=== PATIENT | female | born 1930 | race Caucasian/White ===

== ENCOUNTER 2017-03-16 05:58 | Inpatient (IN) | payer MEDICARE ==
[2017-03-16] MEDS ORDERED: MORPHINE SULFATE 4 MG/ML SYRINGE IV STA (06:24)
--- NOTE | 2017-03-16 06:53 | XR ---
EXAM: XR Pelvis, 1 View CLINICAL HISTORY: Reason: Pain TECHNIQUE: Frontal view of the pelvis. COMPARISON: No relevant prior studies available. FINDINGS: Bones/joints: Bone island versus ossicle projected over the left femoral neck. Degenerative changes of the lumbar spine. No acute fracture. No dislocation. Soft tissues: Unremarkable. IMPRESSION: No acute findings.
--- NOTE | 2017-03-16 06:55 | XR ---
EXAM: XR Chest, 2 Views CLINICAL HISTORY: Reason: trauma TECHNIQUE: Frontal and lateral views of the chest. COMPARISON: No relevant prior studies available. FINDINGS: Lungs: Unremarkable. No consolidation. Pleural space: Unremarkable. No pneumothorax. Heart: Unremarkable. No cardiomegaly. Mediastinum: Atherosclerosis of the aorta. Otherwise unremarkable. Bones/joints: Degenerative changes of the spine and shoulders. IMPRESSION: No acute findings.
[2017-03-16 07:01] LABS: Appearance,Urine Clear (Clear); Bilirubin,Urine Negative (Negative); Glucose,Urine (UA) Negative (Negative); Ketones,Urine Negative (Negative); Leukocyte Esterase,Urine Negative (Negative); Nitrite,Urine Negative (Negative); PH, Urine 7.5 (5.0-8.0); Protein,Urine Negative (Negative); Specific Gravity,Urine 1.006 (1.001-1.035); UA Billing (MACRO vs. MICRO) CHEM; Urobilinogen,Urine <2.0 mg/dL (<2.0)
[2017-03-16 07:06] LABS: Basophils % (A) 1 %; CH 30.9; Eosinophils # (A) 0.3 k/uL (0-0.7); Eosinophils % (A) 5 %; HCT 37.8 % (34.0-46.0); HDW 2.74; HGB 12.8 gm/dL (11.4-16.0); Luc # (Auto) 0.09; Luc % (Auto) 2; Lymphocytes # (A) 1.1 k/uL (1.0-4.8); Lymphocytes % (A) 21 %; MCHC 33.9 g/dL (31.0-37.0); MCV 91.4 fL (80.0-100.0); Monocytes # (A) 0.3 k/uL (0-1.0); Monocytes % (A) 6 %; Neutrophils # (A) 3.5 k/uL (1.3-7.7); Neutrophils % (A) 66 %; RBC 4.13 m/uL (3.80-5.40); RDW 12.6 % (11.5-15.5); WBC 5.3 k/uL (3.8-10.6); WBC (Perox) 5.13
[2017-03-16 07:08] LABS: ALT 26 U/L (9-52); AST 28 U/L (14-36); Alcohol <10 mg/dL; Alkaline Phosphatase 48 U/L (38-126); Amylase 39 U/L (30-110); Anion Gap 5 mmol/L; Blood Urea Nitrogen 11 mg/dL (7-17); Calcium 8.7 mg/dL (8.4-10.2); Carbon Dioxide 26 mmol/L (22-30); Chloride 108 mmol/L (98-107); Glucose 96 mg/dL (74-99); Non-African American GFR(MDRD) >60 (>60 ml/min/1.73 sqM); Potassium 4.4 mmol/L (3.5-5.1); Sodium 139 mmol/L (137-145); Total Bilirubin 0.8 mg/dL (0.2-1.3); Total Protein 5.9 g/dL (6.3-8.2)
[2017-03-16 07:14] LABS: Manual Review Performed
[2017-03-16 07:18] LABS: INR 1.2 (<1.1); Prothrombin Time 11.7 sec (9.0-12.0)
[2017-03-16 07:20] LABS: Creatine Kinase 99 U/L (30-135)
[2017-03-16 07:32] LABS: Creatine Kinase MB 1.4 ng/mL (0.0-2.4); Troponin I <0.012 ng/mL (0.000-0.034)
--- NOTE | 2017-03-16 07:37 | CT ---
EXAMINATION TYPE: CT brain ludin martinez DATE OF EXAM: 03/16/2017 7:22 AM COMPARISON: NONE HISTORY: fall CT DLP: 2769.97 mGycm Automated exposure control for dose reduction was used. TECHNIQUE: CT scan of the head and cervical spine are performed without contrast. FINDINGS: There is no acute intracranial hemorrhage, mass effect, or midline shift identified. The ventricles and sulci are within normal limits in size. White matter demyelination is likely due to chronic small vessel ischemia. Cortical atrophy is likely age-related. Cerebral vascular calcificatio ns are present. The globes are intact and the visualized sinuses are clear. Cervical spine is visualized in its entirety from C1 through upper thoracic levels and demonstrates no evidence of acute fracture or dislocation. Minimal retrolisthesis grade 1 C4-5, C5-6 and C6-7. En dplate sclerosis is present, there is multilevel facet arthropathy. Multilevel foraminal encroachment present to include C3-4 on the left, C4-5 left than right and bilateral C5-6, right-sided C6-7. Prev ertebral soft tissue appears within normal limits. There is multilevel spondylosis. Loss of disc hei ght present C3-4, C4-5 and C5-6, C6-7. The C1-C2 articulation is unremarkable. IMPRESSION: 1. There is no acute fracture or dislocation evident in the cervical spine. 2. No acute intracranial hemorrhage, mass effect, or midline shift is seen.
--- NOTE | 2017-03-16 07:40 | CT ---
EXAMINATION TYPE: CT facial bones wo con DATE OF EXAM: 03/16/2017 7:22 AM COMPARISON: NONE HISTORY: fall CT DLP: 578.03 mGycm Automated exposure control for dose reduction was used. TECHNIQUE: CT scan of the sinuses is performed without contrast, axial images are obtained, coronal r eformatted images are also reviewed. FINDINGS: The paranasal sinuses including the frontal, ethmoid, sphenoid, and maxillary sinuses bila terally are well-aerated without abnormal opacification. The ostiomeatal complex is patent bilateral ly on the coronal images. Visualized portion of mastoid air cells show no abnormal opacification. The globes are intact bilate rally. IMPRESSION: The sinuses are clear and the ostiomeatal complex is patent bilaterally.
--- NOTE | 2017-03-16 08:11 | ED ---
General Adult HPI - General Chief complaint: Fall Stated complaint: fall Source: patient, EMS, RN notes reviewed, old records reviewed Mode of arrival: EMS Limitations: no limitations - History of Present Illness Initial comments: This is an 86-year-old female ER for evaluation. Patient presents here for evaluation status post fall. Supple fall. Mechanical fall. Recent has history of falls, patient is on Plavix. Patient is complaining of right arm pain, left arm pain and facial pain. No loss of consciousness. No nausea vomiting. No significant headache at this time. No neck pain. Patient denies drugs or alcohol - Related Data Home Medications Medication Instructions Recorded Confirmed Carvedilol 25 mg PO BID 03/16/17 03/16/17 Clopidogrel [Plavix] 75 mg PO DAILY 03/16/17 03/16/17 Gabapentin [Neurontin] 100 mg PO DAILY 03/16/17 03/16/17 Nitroglycerin Sl Tabs [Nitrostat] 0.4 mg SUBLINGUAL Q5M PRN 03/16/17 03/16/17 Simvastatin [Zocor] 40 mg PO HS 03/16/17 03/16/17 traMADol HCL [Ultram] 50 mg PO Q6HR PRN 03/16/17 03/16/17 Allergies Allergy/AdvReac Type Severity Reaction Status Date / Time No Known Allergies Allergy Verified 03/16/17 08:00 Review of Systems ROS Statement: Those systems with pertinent positive or pertinent negative responses have been documented in the HPI. ROS Other: All systems not noted in ROS Statement are negative. Past Medical History Past Medical History: Hyperlipidemia, Hypertension History of Any Multi-Drug Resistant Organisms: None Reported Past Surgical History: Unable to Obtain Past Psychological History: No Psychological Hx Reported Smoking Status: Former smoker Past Alcohol Use History: None Reported Past Drug Use History: None Reported General Exam Limitations: no limitations General appearance: alert, in no apparent distress Head exam: Absent: atraumatic (, significant facial abrasions, swollen lip edematous cheek,) Eye exam: Present: normal appearance, PERRL, EOMI. Absent: scleral icterus, conjunctival injection, periorbital swelling ENT exam: Present: normal exam, mucous membranes moist Neck exam: Present: normal inspection. Absent: tenderness, meningismus, lymphadenopathy Respiratory exam: Present: normal lung sounds bilaterally. Absent: respiratory distress, wheezes, rales, rhonchi, stridor Cardiovascular Exam: Present: regular rate, normal rhythm, normal heart sounds. Absent: systolic murmur, diastolic murmur, rubs, gallop, clicks GI/Abdominal exam: Present: soft, normal bowel sounds. Absent: distended, tenderness, guarding, rebound, rigid Extremities exam: Present: normal inspection, full ROM, normal capillary refill , other (Patient does have right and left forearm injuries, right forearm skin tear). Absent: tenderness, pedal edema, joint swelling, calf tenderness Back exam: Present: normal inspection Neurological exam: Present: alert, oriented X3, CN II-XII intact Psychiatric exam: Present: normal affect, normal mood Skin exam: Present: warm, dry, intact, normal color. Absent: rash Course Vital Signs 03/16/17 06:11 Temperature 98.8 F Pulse Rate 58 L Respiratory 20 Rate Blood Pressure 229/109 O2 Sat by Pulse 100 Oximetry - Reevaluation(s) Reevaluation #1: 03/16/17 08:10 Patient still complains of bilateral forearm pain worse on the right Reevaluation #2: 03/16/17 08:10 Gen. surgery was notified regarding patient's care EKG Findings - EKG Comments: EKG Findings:: EKG shows sinus bradycardia rate 57, NC 186, QRS 90, QTC 445 Medical Decision Making - Medical Decision Making 86-year-old ER for evaluation status post fall. Patient did have evaluation by trauma team and will recommend admission for blood pressure control and will follow with trauma consult. Patient has no complaints, no headache, no nausea no vomiting. Patient pain is well-controlled at this time, patient has had difficulty control blood pressure and is normally only on one blood pressure medication, patient is been given IV medications 3 with no improvement. Patient will be admitted for blood pressure control - Lab Data Result diagrams: 03/16/17 06:40 03/16/17 06:40 Lab Results 03/16/17 03/16/17 03/16/17 Range/Units 06:38 06:40 06:40 WBC 5.3 (3.8-10.6) k/uL RBC 4.13 (3.80-5.40) m/uL Hgb 12.8 (11.4-16.0) gm/dL Hct 37.8 (34.0-46.0) % MCV 91.4 (80.0-100.0) fL MCH 31.0 (25.0-35.0) pg MCHC 33.9 (31.0-37.0) g/dL RDW 12.6 (11.5-15.5) % Plt Count 195 (150-450) k/uL Neutrophils % 66 % Lymphocytes % 21 % Monocytes % 6 % Eosinophils % 5 % Basophils % 1 % Neutrophils # 3.5 (1.3-7.7) k/uL Lymphocytes # 1.1 (1.0-4.8) k/uL Monocytes # 0.3 (0-1.0) k/uL Eosinophils # 0.3 (0-0.7) k/uL Basophils # 0.0 (0-0.2) k/uL Manual Slide Review Performed PT (9.0-12.0) sec INR (<1.1) APTT (22.0-30.0) sec Sodium (137-145) mmol/L Potassium (3.5-5.1) mmol/L Chloride (98-107) mmol/L Carbon Dioxide (22-30) mmol/L Anion Gap mmol/L BUN (7-17) mg/dL Creatinine (0.52-1.04) mg/dL Est GFR (MDRD) Af Amer (>60 ml/min/1.73 sqM) Est GFR (MDRD) Non-Af (>60 ml/min/1.73 sqM) Glucose (74-99) mg/dL Plasma Lactic Acid Mj (0.7-2.0) mmol/L Calcium (8.4-10.2) mg/dL Total Bilirubin (0.2-1.3) mg/dL AST (14-36) U/L ALT (9-52) U/L Alkaline Phosphatase (38-126) U/L Total Creatine Kinase (30-135) U/L CK-MB (CK-2) (0.0-2.4) ng/mL CK-MB (CK-2) Rel Index Troponin I (0.000-0.034) ng/mL Total Protein (6.3-8.2) g/dL Albumin (3.5-5.0) g/dL Amylase (30-110) U/L Lipase (23-300) U/L Urine Color Urine Appearance (Clear) Urine pH (5.0-8.0) Ur Specific [place] (1.001-1.035) Urine Protein (Negative) Urine Glucose (UA) (Negative) Urine Ketones (Negative) Urine Blood (Negative) Urine Nitrite (Negative) Urine Bilirubin (Negative) Urine Urobilinogen (<2.0) mg/dL Ur Leukocyte Esterase (Negative) Urine Opiates Screen (NotDetected) Ur Oxycodone Screen (NotDetected) Urine Methadone Screen (NotDetected) Ur Propoxyphene Screen (NotDetected) Ur Barbiturates Screen (NotDetected) U Tricyclic Antidepress (NotDetected) Ur Phencyclidine Scrn (NotDetected) Ur Amphetamines Screen (NotDetected) U Methamphetamines Scrn (NotDetected) U Benzodiazepines Scrn (NotDetected) Urine Cocaine Screen (NotDetected) U Marijuana (THC) Screen (NotDetected) Serum Alcohol mg/dL Blood Type B Positive Blood Type Confirm B Positive Blood Type Recheck CABO Indicated Antibody Screen NEGATIVE Spec Expiration Date 03/19/2017233903/16/17 03/16/17 03/16/17 Range/Units 06:40 06:40 06:40 WBC (3.8-10.6) k/uL RBC (3.80-5.40) m/uL Hgb (11.4-16.0) gm/dL Hct (34.0-46.0) % MCV (80.0-100.0) fL MCH (25.0-35.0) pg MCHC (31.0-37.0) g/dL RDW (11.5-15.5) % Plt Count (150-450) k/uL Neutrophils % % Lymphocytes % % Monocytes % % Eosinophils % % Basophils % % Neutrophils # (1.3-7.7) k/uL Lymphocytes # (1.0-4.8) k/uL Monocytes # (0-1.0) k/uL Eosinophils # (0-0.7) k/uL Basophils # (0-0.2) k/uL Manual Slide Review PT 11.7 (9.0-12.0) sec INR 1.2 (<1.1) APTT 22.0 (22.0-30.0) sec Sodium 139 (137-145) mmol/L Potassium 4.4 (3.5-5.1) mmol/L Chloride 108 H (98-107) mmol/L Carbon Dioxide 26 (22-30) mmol/L Anion Gap 5 mmol/L BUN 11 (7-17) mg/dL Creatinine 0.71 (0.52-1.04) mg/dL Est GFR (MDRD) Af Amer >60 (>60 ml/min/1.73 sqM) Est GFR (MDRD) Non-Af >60 (>60 ml/min/1.73 sqM) Glucose 96 (74-99) mg/dL Plasma Lactic Acid Mj (0.7-2.0) mmol/L Calcium 8.7 (8.4-10.2) mg/dL Total Bilirubin 0.8 (0.2-1.3) mg/dL AST 28 (14-36) U/L ALT 26 (9-52) U/L Alkaline Phosphatase 48 (38-126) U/L Total Creatine Kinase 99 (30-135) U/L CK-MB (CK-2) 1.4 (0.0-2.4) ng/mL CK-MB (CK-2) Rel Index 1.4 Troponin I <0.012 (0.000-0.034) ng/mL Total Protein 5.9 L (6.3-8.2) g/dL Albumin 3.3 L (3.5-5.0) g/dL Amylase 39 (30-110) U/L Lipase 203 (23-300) U/L Urine Color Urine Appearance (Clear) Urine pH (5.0-8.0) Ur Specific [place] (1.001-1.035) Urine Protein (Negative) Urine Glucose (UA) (Negative) Urine Ketones (Negative) Urine Blood (Negative) Urine Nitrite (Negative) Urine Bilirubin (Negative) Urine Urobilinogen (<2.0) mg/dL Ur Leukocyte Esterase (Negative) Urine Opiates Screen (NotDetected) Ur Oxycodone Screen (NotDetected) Urine Methadone Screen (NotDetected) Ur Propoxyphene Screen (NotDetected) Ur Barbiturates Screen (NotDetected) U Tricyclic Antidepress (NotDetected) Ur Phencyclidine Scrn (NotDetected) Ur Amphetamines Screen (NotDetected) U Methamphetamines Scrn (NotDetected) U Benzodiazepines Scrn (NotDetected) Urine Cocaine Screen (NotDetected) U Marijuana (THC) Screen (NotDetected) Serum Alcohol <10 mg/dL Blood Type Blood Type Confirm Blood Type Recheck Antibody Screen Spec Expiration Date 03/16/17 03/16/17 Range/Units 06:40 06:40 WBC (3.8-10.6) k/uL RBC (3.80-5.40) m/uL Hgb (11.4-16.0) gm/dL Hct (34.0-46.0) % MCV (80.0-100.0) fL MCH (25.0-35.0) pg MCHC (31.0-37.0) g/dL RDW (11.5-15.5) % Plt Count (150-450) k/uL Neutrophils % % Lymphocytes % % Monocytes % % Eosinophils % % Basophils % % Neutrophils # (1.3-7.7) k/uL Lymphocytes # (1.0-4.8) k/uL Monocytes # (0-1.0) k/uL Eosinophils # (0-0.7) k/uL Basophils # (0-0.2) k/uL Manual Slide Review PT (9.0-12.0) sec INR (<1.1) APTT (22.0-30.0) sec Sodium (137-145) mmol/L Potassium (3.5-5.1) mmol/L Chloride (98-107) mmol/L Carbon Dioxide (22-30) mmol/L Anion Gap mmol/L BUN (7-17) mg/dL Creatinine (0.52-1.04) mg/dL Est GFR (MDRD) Af Amer (>60 ml/min/1.73 sqM) Est GFR (MDRD) Non-Af (>60 ml/min/1.73 sqM) Glucose (74-99) mg/dL Plasma Lactic Acid Mj 1.0 (0.7-2.0) mmol/L Calcium (8.4-10.2) mg/dL Total Bilirubin (0.2-1.3) mg/dL AST (14-36) U/L ALT (9-52) U/L Alkaline Phosphatase (38-126) U/L Total Creatine Kinase (30-135) U/L CK-MB (CK-2) (0.0-2.4) ng/mL CK-MB (CK-2) Rel Index Troponin I (0.000-0.034) ng/mL Total Protein (6.3-8.2) g/dL Albumin (3.5-5.0) g/dL Amylase (30-110) U/L Lipase (23-300) U/L Urine Color Light Yellow Urine Appearance Clear (Clear) Urine pH 7.5 (5.0-8.0) Ur Specific [place] 1.006 (1.001-1.035) Urine Protein Negative (Negative) Urine Glucose (UA) Negative (Negative) Urine Ketones Negative (Negative) Urine Blood Negative (Negative) Urine Nitrite Negative (Negative) Urine Bilirubin Negative (Negative) Urine Urobilinogen <2.0 (<2.0) mg/dL Ur Leukocyte Esterase Negative (Negative) Urine Opiates Screen Not Detected (NotDetected) Ur Oxycodone Screen Not Detected (NotDetected) Urine Methadone Screen Not Detected (NotDetected) Ur Propoxyphene Screen Not Detected (NotDetected) Ur Barbiturates Screen Not Detected (NotDetected) U Tricyclic Antidepress Not Detected (NotDetected) Ur Phencyclidine Scrn Not Detected (NotDetected) Ur Amphetamines Screen Not Detected (NotDetected) U Methamphetamines Scrn Not Detected (NotDetected) U Benzodiazepines Scrn Not Detected (NotDetected) Urine Cocaine Screen Not Detected (NotDetected) U Marijuana (THC) Screen Not Detected (NotDetected) Serum Alcohol mg/dL Blood Type Blood Type Confirm Blood Type Recheck Antibody Screen Spec Expiration Date - Radiology Data Radiology results: report reviewed (CT brain and C-spine, chest and pelvis x-ray , x-ray bilateral wrist is negative for traumatic injury), image reviewed Disposition Clinical Impression: Fall, Contusion, wrist, Hypertensive urgency, Chin contusion, Tear of skin of right wrist Disposition: [facility] Condition: Good Referrals: Anthony Brooke DO [Primary Care Provider] - 1-2 days
--- NOTE | 2017-03-16 08:54 | XR ---
Bilateral forearms HISTORY: Trauma and pain 2 views of each forearm submitted No comparisons Bone mineralization, joint spaces and alignment are maintained. There is soft tissue swelling distal right forearm. IMPRESSION: No fracture or dislocation of the bilateral forearms.
[2017-03-16] MEDS ORDERED: LABETALOL 5 MG/ML VIAL MDV IVP STA (09:08)
[2017-03-16] MEDS ORDERED: MORPHINE SULFATE 4 MG/ML SYRINGE IVP STA ×2 (09:08→11:31)
[2017-03-16] MEDS ORDERED: hydrALAZINE HCL 20 MG/ML 1 ML VIAL IVP STA (10:11)
[2017-03-16] MEDS ORDERED: LORazepam 2 MG/ML SYRINGE IV STA ×2 (11:29→11:30)
[2017-03-16] MEDS ORDERED: ONDANSETRON 4 MG/2 ML VIAL IVP STA (11:30)
--- NOTE | 2017-03-16 11:41 | P.PN ---
Progress Note - Text Patient seen and evaluated. Agree with admission with poorly controlled blood pressure and multiple bruising. No acute bone fractures or concussion of the head. Patient is cleared for admission to medicine service for blood pressure controll as she fell secondary to dizziness. Will follow.
[2017-03-16] MEDS ORDERED: SODIUM CHLORIDE 0.9% 1,000 ML IV ONE (11:48)
[2017-03-16 14:41] VITALS: BMI 26.4
[2017-03-16] MEDS ORDERED: NITROGLYCERIN SL TABS 0.4 MG TAB SUBLINGUAL PRN (18:21)
[2017-03-16] MEDS: CARVEDILOL 12.5 MG TAB PO SCH (20:52)
[2017-03-16] MEDS ORDERED: ATORVASTATIN 20 MG TAB PO SCH (21:00)
[2017-03-17 07:26] VITALS: TEMP 98
[2017-03-17 07:43] LABS: Basophils % (A) 0 %; CH 30.5; CHCM 32.7; Eosinophils # (A) 0.1 k/uL (0-0.7); Eosinophils % (A) 2 %; HCT 38.2 % (34.0-46.0); HDW 2.46; HGB 12.3 gm/dL (11.4-16.0); Luc # (Auto) 0.13; Luc % (Auto) 2; Lymphocytes # (A) 1.1 k/uL (1.0-4.8); Lymphocytes % (A) 17 %; MCH 30.1 pg (25.0-35.0); MCHC 32.2 g/dL (31.0-37.0); MCV 93.6 fL (80.0-100.0); Mean Platelet Volume 7.8; Monocytes # (A) 0.4 k/uL (0-1.0); Monocytes % (A) 7 %; Neutrophils # (A) 4.7 k/uL (1.3-7.7); Neutrophils % (A) 72 %; RBC 4.08 m/uL (3.80-5.40); RDW 12.9 % (11.5-15.5); WBC 6.6 k/uL (3.8-10.6); WBC (Perox) 6.91
[2017-03-17 07:47] LABS: INR 1.1 (<1.1); Prothrombin Time 11.4 sec (9.0-12.0)
[2017-03-17] MEDS: CARVEDILOL 12.5 MG TAB PO SCH (08:02)
[2017-03-17] MEDS: traMADol 50 MG TAB PO PRN ×2 (08:02→14:06)
--- NOTE | 2017-03-17 08:02 | HP ---
DATE OF ADMISSION: CHIEF COMPLAINT: Fall. HISTORY OF PRESENT ILLNESS: This 86-year-old woman with a past medical history of hypertension, hyperlipidemia, cardiac cath and CAD with stent being followed by Dr. Chuck Baeza in the outpatient setting apparently had a fall. Patient apparently had period of dizziness, but patient did not fall, did not lose any consciousness. Patient has extensive ecchymosis in both arms and as well as chin area. The patient has multiple evaluations in [facility] including chest x-ray, which did not show any acute abnormality and forearm x-ray showed no fracture-dislocation and a facial CT showed no ostiomeatal complex bilaterally. CT of the brain and spine showed no acute fracture. There is no history of fever, rigors or chills. No history of headache, loss of consciousness or seizures. The patient also has elevated hypertension urgency present on admission. Blood pressure up to 220/109. PAST MEDICAL HISTORY: History of hypertension, hyperlipidemia, vascular disorder, history of CAD with stents, history of cardiac catheterization. Medications prior to admission include home medications: 1. Nitrostat 0.4 sublingual p.r.n. 2. Ultram 50 mg q.6 p.r.n. 3. Zocor 40 mg q.h.s. 4. Neurontin 100 mg p.o. daily 5. Plavix 75 mg p.o. daily. 6. Coreg 25 mg b.i.d. ALLERGIES: None. FAMILY HISTORY: History of myocardial infarction in the family. SOCIAL HISTORY: Previous history of smoking. No history of alcohol intake. REVIEW OF SYSTEMS: ENT: No diminishing hearing or diminished vision. CARDIOVASCULAR: No angina. RESPIRATORY: No cough. GI: No nausea. : No dysuria. NERVOUS SYSTEM: As mentioned earlier. ALLERGY/IMMUNOLOGY: No history of asthma. MUSCULOSKELETAL: As mentioned earlier. HEMATOLOGY/ONCOLOGY: No history of anemia. ENDOCRINE: No history of diabetes mellitus or hypothyroidism. CONSTITUTIONAL: As mentioned earlier. DERMATOLOGY: Negative. RHEUMATOLOGY: Negative. PSYCHIATRY: As mentioned earlier. PHYSICAL EXAMINATION: The patient is alert and oriented x3. Pulse is 80, blood pressure 166/77, respirations 16, temperature 99.3, pulse ox 92% on room air. HEENT: Conjunctivae normal. Oral mucosa moist. NECK: No jugular venous distention. No carotid bruit. No lymph node enlargement. Otherwise, significant ecchymosis of the chin area present without any fractures. CARDIOVASCULAR: S1 and S2, muffled. Ejective systolic murmur. No S3, no S4. RESPIRATORY: Breath sounds diminished at the bases. Scattered rhonchi and crackles. ABDOMEN: Soft, nontender. No mass palpable. No hepatosplenomegaly. LEGS: No edema, no swelling. NERVOUS SYSTEM: Higher function as mentioned earlier. Moves all 4 limbs. No focal motor deficit. LYMPHATICS: No lymphadenopathy of neck, axillae or groin. SKIN: No ulcers, rashes or bleeding. EXAMINATION OF BOTH HANDS: Significant erythema and as well as skin excoriation also present. LAB INVESTIGATIONS: CBC within normal limits. INR is 1.2. Sodium 139, potassium 4.4. Albumin 3.3. UA noted. ASSESSMENT: 1. Unsteadiness and fall with possible gait dysfunction. 2. Significant contusion of the chin and both arms with hematomas. 3. Hypertensive urgency. 4. Skin tear of both arms. 5. History of hypertension. 6. Hyperlipidemia. 7. History of cardiac catheterization and coronary artery disease stent. 8. History of right thigh stent for peripheral vascular disease. 9. Remote history of nicotine dependence. RECOMMENDATIONS AND DISCUSSION: This 86-year-old woman presented with multiple complex medical issues. Will monitor the patient closely. Continue the current medications. Continues symptomatic treatment. Otherwise at this time, I the antihypertensive medications, symptomatic treatment and repeat labs, PT, OT evaluation. Guarded prognosis because of multiple complex medical issues. Further recommendations to follow. The drug screen is negative. Serum alcohol is less than 10 also. Copy of dictation forwarded to Dr. Baeza who is the primary physician. [facility]
[2017-03-17 08:04] LABS: Anion Gap 7 mmol/L; Blood Urea Nitrogen 9 mg/dL (7-17); Calcium 8.6 mg/dL (8.4-10.2); Carbon Dioxide 25 mmol/L (22-30); Chloride 108 mmol/L (98-107); Glucose 98 mg/dL (74-99); Non-African American GFR(MDRD) >60 (>60 ml/min/1.73 sqM); Sodium 140 mmol/L (137-145)
[2017-03-17] MEDS ORDERED: GABAPENTIN 100 MG CAP PO SCH (09:00)
[2017-03-17 11:59] VITALS: PULSE 69
[2017-03-17 14:39] VITALS: BP 185/86; RESP 20
--- NOTE | 2017-03-17 21:25 | P.GSCN ---
History of Present Illness Consult date: 03/16/17 Reason for Consult: Fall Requesting physician: Juan Pablo Storey History of present illness: The patient is a 86-year-old female who presents acutely to the emergency room after falling at ground-level. She is on Plavix. She reports facial pain including jaw pain. She also reports hip pain. Secondary to her history of fall on thinners, trauma activation level II was performed. Her CT of her head including facial views are negative for acute fractures. She also has history of recent cardiac stent placement and has been placed on Plavix per her ergonomist. Upon her initial presentation she had hypertensive emergency with systolic blood pressures over 200. She also reports dizziness as a cause of her fall. Review of Systems CONSTITUTIONAL: Denies any fever or chills. Denies recent weight loss or weight gain. HEENT: Denies any trouble with vision, hearing or nosebleeds. No difficulty swallowing. LYMPHATIC: The patient denies any lumps and bumps around the neck. ENDOCRINE: Denies any thyroid disorders. Denies any blood sugar glucose intolerance. RESPIRATORY: Denies pneumonia. Denies any troubles with breathing or dyspnea on exertion. CARDIOVASCULAR: Has palpitations. Has history of chest pain. GASTROINTESTINAL: Denies heart burn, constipation or bright red blood per rectum. GENITOURINARY: Denies any blood in urine or increased urinary frequency. MUSCULOSKELETAL: Has back pain, stiffness, joint arthritis. NEUROLOGIC: Denies any numbness or tingling along the distal extremities. No seizure disorders or headaches. PSYCHIATRIC: Denies depression or suidical ideation. HEMATOLOGIC: Has abnormal bleeding or bruising. Past Medical History Past Medical History: Hyperlipidemia, Hypertension History of Any Multi-Drug Resistant Organisms: None Reported Past Surgical History: Unable to Obtain Past Psychological History: No Psychological Hx Reported Smoking Status: Former smoker Past Alcohol Use History: None Reported Past Drug Use History: None Reported - Past Family History Father Family Medical History: Myocardial Infarction (HI) Mother Family Medical History: Coronary Artery Disease (CAD) Medications and Allergies Home Medications Medication Instructions Recorded Confirmed Type Carvedilol 25 mg PO BID 03/16/17 03/16/17 History Gabapentin [Neurontin] 100 mg PO DAILY 03/16/17 03/16/17 History Nitroglycerin Sl Tabs [Nitrostat] 0.4 mg SUBLINGUAL Q5M PRN 03/16/17 03/16/17 History Simvastatin [Zocor] 40 mg PO HS 03/16/17 03/16/17 History traMADol HCL [Ultram] 50 mg PO Q6HR PRN 03/16/17 03/16/17 History Allergies Allergy/AdvReac Type Severity Reaction Status Date / Time No Known Allergies Allergy Verified 03/16/17 08:00 Surgical - Exam Vital Signs Temp Pulse Resp BP Pulse Ox 98.8 F 58 L 20 229/109 100 03/16/17 06:11 03/16/17 06:11 03/16/17 06:11 03/16/17 06:11 03/16/17 06:11 GENERAL: Well developed and in no acute distress. Pleasant. HEENT: No sclera icterus. Extraocular movements grossly intact. Moist buccal mucosa. Hears conversational speech. No nasal drainage. Ecchymosis and edema along the inferior jaw. Has 2 cm superficial laceration above the right eyelid. She is edentulous. NECK: Supple without lymphadenopathy. No JV distention. No cervical spine tenderness. CHEST: Non-labored respirations and equal bilateral excursions. CARDIOVASCULAR: Regular rate and rhythm. Palpable 2+ radial pulses. ABDOMEN: Soft. Nondistended. No peritonitis or guarding. MUSCULOSKELETAL: No clubbing, cyanosis or edema. Moderate ecchymosis and bruising along the anterior bilateral forearms. Tegaderms placed for history of skin tear. No ecchymosis along the bilateral hips. NEUROLOGIC: No focal or lateralizing signs. PSYCH: Appropriate affect. Alert and oriented to person, place and time. Results - Labs 03/17/17 07:13 03/17/17 07:13 Abnormal Lab Results - Last 24 Hours (Table) 03/16/17 Range/Units 06:40 Chloride 108 H (98-107) mmol/L Total Protein 5.9 L (6.3-8.2) g/dL Albumin 3.3 L (3.5-5.0) g/dL Diabetes panel 03/16/17 Range/Units 06:40 Sodium 139 (137-145) mmol/L Potassium 4.4 (3.5-5.1) mmol/L Chloride 108 H (98-107) mmol/L Carbon Dioxide 26 (22-30) mmol/L BUN 11 (7-17) mg/dL Creatinine 0.71 (0.52-1.04) mg/dL Glucose 96 (74-99) mg/dL Calcium 8.7 (8.4-10.2) mg/dL AST 28 (14-36) U/L ALT 26 (9-52) U/L Alkaline Phosphatase 48 (38-126) U/L Total Protein 5.9 L (6.3-8.2) g/dL Albumin 3.3 L (3.5-5.0) g/dL Calcium panel 03/16/17 Range/Units 06:40 Calcium 8.7 (8.4-10.2) mg/dL Albumin 3.3 L (3.5-5.0) g/dL Pituitary panel 03/16/17 Range/Units 06:40 Sodium 139 (137-145) mmol/L Potassium 4.4 (3.5-5.1) mmol/L Chloride 108 H (98-107) mmol/L Carbon Dioxide 26 (22-30) mmol/L BUN 11 (7-17) mg/dL Creatinine 0.71 (0.52-1.04) mg/dL Glucose 96 (74-99) mg/dL Calcium 8.7 (8.4-10.2) mg/dL Adrenal panel 03/16/17 Range/Units 06:40 Sodium 139 (137-145) mmol/L Potassium 4.4 (3.5-5.1) mmol/L Chloride 108 H (98-107) mmol/L Carbon Dioxide 26 (22-30) mmol/L BUN 11 (7-17) mg/dL Creatinine 0.71 (0.52-1.04) mg/dL Glucose 96 (74-99) mg/dL Calcium 8.7 (8.4-10.2) mg/dL Total Bilirubin 0.8 (0.2-1.3) mg/dL AST 28 (14-36) U/L ALT 26 (9-52) U/L Alkaline Phosphatase 48 (38-126) U/L Total Protein 5.9 L (6.3-8.2) g/dL Albumin 3.3 L (3.5-5.0) g/dL - Imaging Additional studies: CT had including facial imaging also reviewed and unremarkable for acute fractures. Assessment and Plan (1) Chin contusion Status: Acute (2) Contusion, wrist Status: Acute (3) Fall Status: Acute (4) Hypertensive urgency Status: Acute (5) Tear of skin of right wrist Status: Acute Plan: 1. She is clear from a trauma surgical standpoint as she has no acute surgical issues. 2. She has history of dizziness with a cause of her fall as well as hypertensive urgency. Agree with medicine admission with trauma to follow. 3. Wound care includes continuing Tegaderm at this time to minimize any further skin tears. 4. IV fluid hydration and 5.
--- NOTE | 2017-03-21 14:24 | DS ---
DATE OF ADMISSION: 03/16/2017 DATE OF DISCHARGE: 03/17/2017 FINAL DIAGNOSES: 1. Unsteadiness and fall with possible gait dysfunction, improved. 2. Significant contusion in the chin and both arms and hematomas without any obvious fractures currently. 3. Hypertensive urgency present on admission. 4. Skin tear of both arms. 5. History of hypertension. 6. History of hyperlipidemia. 7. History of cardiac catheterization and coronary artery disease and stent previous. 8. History of right thigh stent for peripheral vascular disease. 9. Remote history of nicotine dependence. DISCHARGE DISPOSITION: The patient will be discharged in a stable condition with guarded prognosis. HISTORY OF PRESENT ILLNESS: This is an 87-year-old woman with a past medical history of multiple medical problems being followed by Dr. Chuck Baeza in the outpatient setting was admitted to the hospital with fall and multiple hematomas as mentioned earlier. Treated symptomatically. Patient improved significantly. The patient also seen by surgery and facial CT scan and other results of the CAT scans were also noted. Advised the patient to follow-up closely with her primary physician with possible neurology evaluation as an outpatient. On exam, vital signs are stable. CARDIOVASCULAR: S1, S2 n. ABDOMEN: Soft. Nervous system: No focal deficits. Discharge advised and medications: 1. Diet is cardiac follow-up. 2. Follow up with Dr. Brooke in 2 to 3 days. 3. Coreg 25 mg p.o. b.i.d. 4. Neurontin 100 mg p.o. daily. 5. Nitrostat 0.4 sublingual p.r.n. 6. Seroquel 40 mg q.h.s. 7. Ultram 50 mg q.6 p.r.n. MTDD
== END 2017-03-17 15:00 | disposition home or self-care (01) | DRG 305 ==
LOC: EC 05:58 → 5MS5E 11:49 → 3SUR 13:26
PROVIDERS: ADMIT Hospitalist; ATTEND Hospitalist
DX: I16.0 Hypertensive urgency (principal); I73.9 Peripheral vascular disease, unspecified; E78.5 Hyperlipidemia, unspecified; I10 Essential (primary) hypertension; I25.10 Atherosclerotic heart disease of native coronary artery without angina pectoris; S00.83XA Contusion of other part of head, initial encounter; R42 Dizziness and giddiness; R26.9 Unspecified abnormalities of gait and mobility; S41.111A Laceration without foreign body of right upper arm, initial encounter; S41.112A Laceration without foreign body of left upper arm, initial encounter; Z79.02 Long term (current) use of antithrombotics/antiplatelets; Z79.899 Other long term (current) drug therapy; Z87.891 Personal history of nicotine dependence; Z95.5 Presence of coronary angioplasty implant and graft; Z82.49 Family history of ischemic heart disease and other diseases of the circulatory system; W18.30XA Fall on same level, unspecified, initial encounter; Y92.9 Unspecified place or not applicable
CPT/HCPCS: 36415; 70450; 70486; 71010; 72125; 72170; 80048; 80053; 80306; 80320; 81003; 82150; 82550; 82553; 83605; 83690; 84484; 85025; 85610; 85730; 86850; 86900; 86901; 93005; 96374; 96375; 96376; 99285